=== PATIENT | male | born 1995 | race Caucasian/White ===

== ENCOUNTER 2016-05-10 00:17 | Emergency (ER) | payer MEDICAID, OTHER ==
[~2016-05-10] VITALS: Ht 177.8 cm; Wt 88.0 kg
[~2016-05-10 00:17] MED LIST: ACET-2047 PO; IBUP-1542 PO
[2016-05-10 00:31] VITALS: Ht 177.8 cm; Wt 88.0 kg
--- NOTE | 2016-05-10 03:47 | ERD ---
ER Documentation Chief Complaint Date/Time DATE: 05/10/16 TIME: 03:45 Chief Complaint right wrist laceration from a broken window yesterday HPI 21-year-old male presents in emergency department for complete right laceration wound from a hitting a broken window accidentally. Patient is complaining of pain on affected area throbbing pain, 4/10 scale, is worse upon movement. Patient denies any limitation of movement of the joint. Patient denies any numbness or tingling. Patient denies any fever or chills. Patient did not take any medications to help with symptoms. ROS All systems reviewed and are negative except as per history of present illness. Medications Home Meds Active Scripts Acetaminophen* (Acetaminophen*) 650 Mg Tablet, 650 MG PO Q4H Y for FEVER, #15 TAB Prov:CHO,REMBERTO 10/28/14 Ibuprofen* (Motrin*) 600 Mg Tab, 600 MG PO Q6 for FEVER, #15 TAB Prov:CHO,REMBERTO 15 Allergies Allergies: Coded Allergies: No Known Allergy (Unverified , 05/10/16) PMhx/Soc Last tetanus immunization one year ago. Medical and Surgical Hx: pt denies Medical Hx, pt denies Surgical Hx History of Surgery: No Anesthesia Reaction: No Hx Neurological Disorder: No Hx Respiratory Disorders: No Hx Cardiac Disorders: No Hx Psychiatric Problems: No Hx Miscellaneous Medical Probl: No Hx Alcohol Use: No Hx Substance Use: No Hx Tobacco Use: Yes Smoking Status: Current every day smoker FmHx Family History: No coronary disease, No diabetes, No other Physical Exam Vitals Vital Signs Date Time Temp Pulse Resp B/P Pulse Ox O2 Delivery O2 Flow Rate FiO2 05/10/16 00:31 97.6 85 20 137/68 100 Physical Exam GENERAL: The patient is well developed and appropriate for usual state of health, in no apparent distress. CHEST: Clear to auscultation bilaterally. There are no rales, wheezes or rhonchi. HEART: Regular rate and rhythm. No murmurs, clicks, rubs or gallops. No S3 or S4. ABDOMEN: Soft, nontender and nondistended. Good bowel sounds. No rebound or guarding. No gross peritonitis. No gross organomegaly or masses. No Jackson sign or McBurney point tenderness. BACK: No midline or flank tenderness. EXTREMITIES: Patient was able to do full range of motion of the right wrist without any restriction. Equal pulses bilaterally. There is no peripheral clubbing, cyanosis or edema. No focal swelling or erythema. Full range of motion. Grossly neurovascularly intact. NEURO: Alert and oriented. Cranial nerves 2-12 intact. Motor strength in all 4 extremities with 5/5 strength. Sensation grossly intact. Normal speech and gait. SKIN: 4 cm laceration wound noted in the right forearm near the right wrist area , extends up to the dermal layer, no subcutaneous tissue involvement. No tendon involvement. No palpable foreign body. There is no apparent rash or petechia. The skin is warm and dry. HEMATOLOGIC AND LYMPHATIC: There is no evidence of excessive bruising or lymphedema. No gross cervical, axillary, or inguinal lymphadenopathy. Results 24 hrs PROCEDURE: XR wrist. CLINICAL INDICATION: Foreign body. TECHNIQUE: AP, lateral and oblique views of the right wrist was obtained. COMPARISON: There are no similar studies submitted for comparison. FINDINGS: There is no acute fracture or dislocation. No destructive osseous lesions are seen. The joint spaces are unremarkable. No radiopaque foreign bodies are seen. IMPRESSION: No acute fracture or dislocation. RPTAT: HIKT .Fred Miranda MD, MD Date Time Electronically viewed and signed by .Fred Miranda MD, MD on 05/10/2016 04:45 .T/ CC: RENE WHITE MANAGER [employer] Procedures/MDM Procedure Note: After obtaining informed consent, the wound was irrigated with 250 ml of normal saline and cleaned with diluted betadine. Using aseptic technique, the wound was approximated using a 3 [place]. After the procedure, the wound was well approximated. Patient tolerated procedure well. Bacitracin applied on affected area. Dressing was applied afterwards. Medical Decision Making: Patient's pain is most likely consistent with a laceration wound noted on the area which was easily approximated using rose. There is no suspicion for neurovascular compromise. Patient has intact sensation and circulation of the affected extremity. There is low suspicion for septic arthritis. Patient does not have any fever. Radiology exams of the affected area does not show any fracture or dislocation. No foreign body noted. Disposition: Home. Patient is given prescription for ibuprofen for pain, Tramadol for severe pain, Keflex to prevent infection. Patient was advised to elevate the affected area and apply ice on affected area. Patient was advised that if symptoms are worse, numbness, tingling, high fever, unable to move joint , worsening symptoms, to return to emergency department immediately. Otherwise, patient is advised to follow up with the primary care doctor in 2 days, staple removal in 10 days. Departure Diagnosis: Primary Impression: Arm laceration Encounter type: initial encounter Laterality: right Qualified Code: S41.111A - Arm laceration, right, initial encounter Condition: Stable Patient Instructions: Laceration, Extrem (Suture, Staple, Or Tape) Additional Instructions: Patient is given prescription for ibuprofen for pain, Tramadol for severe pain , Keflex to prevent infection. Patient was advised to elevate the affected area and apply ice on affected area. Patient was advised that if symptoms are worse , numbness, tingling, high fever, unable to move joint, worsening symptoms, to return to emergency department immediately. Otherwise, patient is advised to follow up with the primary care doctor in 2 days, staple removal in 10 days. RENE WHITE NP May 10, 2016 03:47
--- NOTE | 2016-05-10 04:45 | RADRPT ---
PROCEDURE: XR wrist. CLINICAL INDICATION: Foreign body. TECHNIQUE: AP, lateral and oblique views of the right wrist was obtained. COMPARISON: There are no similar studies submitted for comparison. FINDINGS: There is no acute fracture or dislocation. No destructive osseous lesions are seen. The joint spaces are unremarkable. No radiopaque foreign bodies are seen. IMPRESSION: No acute fracture or dislocation. RPTAT: HIKT .Fred Miranda MD, MD Date Time Electronically viewed and signed by .Fred Miranda MD, on 05/10/2016 04:45 .T/
[2016-05-10] MEDS ORDERED: CEPH-443 PO (04:58)
[2016-05-10] MEDS ORDERED: IBUP-1542 PO (04:58)
[2016-05-10] MEDS ORDERED: TRAM50TA2 PO (04:58)
[2016-05-10 05:07] VITALS: BP 120/63; PULSE 86; RESP 20; TEMP 98.6
== END 2016-05-10 05:08 | disposition home or self-care (01) ==
LOC: FTE 00:17
DX: S51.811A Laceration without foreign body of right forearm, initial encounter (principal); W25.XXXA Contact with sharp glass, initial encounter; Y92.9 Unspecified place or not applicable; Z87.891 Personal history of nicotine dependence

== ENCOUNTER 2018-10-05 01:50 | Emergency (ER) | payer SELFPAY ==
[~2018-10-05] VITALS: Ht 180.3 cm; Wt 111.7 kg
[~2018-10-05 01:50] MED LIST changes: +CEPH-443 PO; +TRAM50TA2 PO
[2018-10-05 01:53] VITALS: Ht 180.3 cm; Wt 111.7 kg
[2018-10-05] MEDS ORDERED: MECLIZINE 12.5 MG TAB PO ONE (04:30)
[2018-10-05 06:36] VITALS: BP 125/71; PULSE 59; RESP 18
--- NOTE | 2018-10-13 18:44 | ERD ---
ER Documentation Chief Complaint Chief Complaint DIZZINESS HPI History of Present Illness: 23-year-old male coming in today with complaint of dizziness in which he feels room is spinning, feeling like he is wanting to faint, difficulty breathing. Patient reports symptoms have been the day before his visit to emergency department today. Patient reports increased episodes of this occurring over the past month. Denies syncopal episodes. At home pharmacological/nonpharmacological treatment for symptoms: Denies Denies social concerns; Denies recent foreign travel ROS All systems reviewed and are negative except as per history of present illness. Medications Home Meds Active Scripts Ibuprofen* (Motrin*) 600 Mg Tab, 600 MG PO Q6H PRN for PAIN AND OR ELEVATED TEMP, #30 TAB Prov:RENE WHITE TOOTH INSPECTOR 05/10/16 Tramadol HCl (Tramadol HCl) 50 Mg Tablet, 50 MG PO Q6 PRN for SEVERE PAIN LEVEL 7-10, #20 TAB Prov:RENE WHITE NP 05/10/16 Cephalexin* (Keflex*) 500 Mg Capsule, 500 MG PO QID for 5 Days, CAP Prov:RENE WHITE TOOTH INSPECTOR 05/10/16 Acetaminophen* (Acetaminophen*) 650 Mg Tablet, 650 MG PO Q4H PRN for FEVER, #15 TAB Prov:CHO,REMBERTO 10/28/14 Ibuprofen* (Motrin*) 600 Mg Tab, 600 MG PO Q6 for FEVER, #15 TAB Prov:CHO,REMBERTO 15 Allergies Allergies: Coded Allergies: No Known Allergy (Unverified , 05/10/16) PMhx/Soc Medical and Surgical Hx: pt denies Medical Hx, pt denies Surgical Hx History of Surgery: No Anesthesia Reaction: No Hx Neurological Disorder: No Hx Respiratory Disorders: No Hx Cardiac Disorders: No Hx Psychiatric Problems: No Hx Miscellaneous Medical Probl: No Hx Alcohol Use: Yes (ocassional) Hx Substance Use: No Hx Tobacco Use: Yes Smoking Status: Current every day smoker FmHx Family History: No diabetes, No coronary disease Physical Exam Physical Exam Const: No acute distress, afebrile Head: Atraumatic Eyes: Normal Conjunctiva ENT: Normal External Ears, Nose and Mouth. Neck: Full range of motion. No meningismus. Resp: Clear to auscultation bilaterally Cardio: Bradycardia, heart rate of 56, no murmurs Abd: Soft, non tender, non distended. No guarding, no masses, no rigidity Skin: No petechiae or rashes Back: No midline or flank tenderness Ext: No cyanosis, or edema Neur: Awake and alert x3, speaking in clear sentences, no focal deficits or facial asymmetry Psych: Normal Mood and Affect Results 24 hrs Laboratory Tests Test 10/05/18 04:50 10/05/18 04:59 10/05/18 05:21 Urine Opiates Screen Negative Urine Barbiturates Negative Urine Amphetamines Screen Negative Urine Benzodiazepines Screen Negative Urine Cocaine Screen Negative Urine Cannabinoids Negative White Blood Count 8.0 10^3/ul Red Blood Count 5.40 10^6/ul Hemoglobin 15.7 g/dl Hematocrit 45.8 % Mean Corpuscular Volume 84.8 fl Mean Corpuscular Hemoglobin 29.1 pg Mean Corpuscular Hemoglobin Concent 34.3 g/dl Red Cell Distribution Width 12.6 % Platelet Count 219 10^3/UL Mean Platelet Volume 10.4 fl Immature Granulocytes % 0.400 % Neutrophils % 51.7 % Lymphocytes % 38.1 % Monocytes % 6.0 % Eosinophils % 2.9 % Basophils % 0.9 % Nucleated Red Blood Cells % 0.0 /100WBC Immature Granulocytes # 0.030 10^3/ul Neutrophils # 4.1 10^3/ul Lymphocytes # 3.0 10^3/ul Monocytes # 0.5 10^3/ul Eosinophils # 0.2 10^3/ul Basophils # 0.1 10^3/ul Nucleated Red Blood Cells # 0.0 10^3/ul Sodium Level 142 mmol/L Potassium Level 4.1 mmol/L Chloride Level 108 mmol/L Carbon Dioxide Level 25 mmol/L Anion Gap 9 Blood Urea Nitrogen 16 mg/dl Creatinine 0.80 mg/dl Est Glomerular Filtrat Rate mL/min > 60 mL/min Glucose Level 93 mg/dl Calcium Level 9.3 mg/dl Total Bilirubin 0.6 mg/dl Direct Bilirubin 0.00 mg/dl Indirect Bilirubin 0.6 mg/dl Aspartate Amino Transf (AST/SGOT) 29 IU/L Alanine Aminotransferase (ALT/SGPT) 35 IU/L Alkaline Phosphatase 95 IU/L Troponin I < 0.012 ng/ml Total Protein 7.8 g/dl Albumin 4.4 g/dl Globulin 3.40 g/dl Albumin/Globulin Ratio 1.29 Bedside Urine pH (LAB) 6.0 Bedside Urine Protein (LAB) Trace Bedside Urine Glucose (UA) Negative Bedside Urine Ketones (LAB) Negative Bedside Urine Blood Trace-intact Bedside Urine Nitrite (LAB) Negative Bedside Urine Leukocyte Esterase (L Negative Current Medications Medications Dose Sig/Mildred Start Time Status Last (Trade) Ordered Route PRN Stop Time Admin Dose Reason Admin Meclizine 25 mg ONCE ONCE 10/05/18 DC 10/05/18 HCl PO 04:30 10/05/18 04:51 (Antivert) 04:31 Procedures/MDM ED COURSE: ED course includes a thorough examination and history. The patient was stable throughout ED course. I kept the patient and/or family informed of laboratory and diagnostic imaging results throughout the ED course. LABS: CBC: no e/o of systemic infection or severe anemia CMP: no e/o severe acidosis, alkalosis, renal failure, diabetic ketoacidosis, liver disease troponin negative UDS negative Urinalysis with trace protein and blood MEDICATIONS GIVEN IN ER: Meclizine Patient tolerated medication well with no adverse reactions. Patient reported improvement in dizziness symptoms. DIAGNOSTIC IMAGING: Read by radiologist. Chest x-ray shown IMPRESSION: 1. No acute abnormalities. RPTAT:HGST Physician Madelaine Date Time Electronically viewed and signed by Yulia Jensen Physician on 10/05/2018 05 :40 EKG: Read by ED attending physician. EKG shows sinus bradycardia rhythm at a rate of 49. No arrhythmias, acute ST elevations or T wave changes were noted. MEDICAL DECISION MAKING: Low suspicion for life-threatening medical emergency. Low suspicion for cardiac emergency including STEMI, NSTEMI. Otherwise healthy patient presenting with constellation of symptoms likely re presenting symptomatic bradycardia as characterized by history, physical exam findings, radiologic findings, lab findings. Patient reassessment @ 0630: Results discussed. Patient hemodynamically stable. No respiratory distress, otherwise relatively well appearing and nontoxic. Disposition given. Patient educated on diagnoses, prescriptions, follow-up care, return precautions. Strict return precautions given for worsening condition; questions answered discharge. Patient verbalizes understanding of discharge instructions. DISPOSITION: DISCHARGE At this time, patient is stable for discharge and outpatient management. I have instructed the patient to follow-up with his/her primary care physician in 1-2 days. I have discussed with the patient the possibility of needing to see a specialist for further workup and imaging studies if symptoms persist. I have instructed the patient to promptly return to the ER for any new or worsening symptoms including increased pain, fever, nausea, vomiting, weakness or LOC. The patient and/or family expressed understanding of and agreement with this plan. All questions were answered. Home care instructions were provided. DISCLAIMER: Inadvertent spelling and grammatical errors are likely due to EHR/dictation software use and do not reflect on the overall quality of patient care. Also, please note that the electronic time recorded on this note does not necessarily reflect the actual time of the patient encounter. Departure Diagnosis: Primary Impression: Lightheadedness Additional Impression: Symptomatic bradycardia Condition: Stable Patient Instructions: Bradycardia Referrals: [facility] YOU HAVE RECEIVED A MEDICAL SCREENING EXAM AND THE RESULTS INDICATE THAT YOU DO NOT HAVE A CONDITION THAT REQUIRES URGENT TREATMENT IN THE EMERGENCY DEPARTMENT. FURTHER EVALUATION AND TREATMENT OF YOUR CONDITION CAN WAIT UNTIL YOU ARE SEEN IN YOUR DOCTORS OFFICE WITHIN THE NEXT 1-2 DAYS. IT IS YOUR RESPONSIBILITY TO MAKE AN APPOINTMENT FOR FOLOW-UP CARE. IF YOU HAVE A PRIMARY DOCTOR --you should call your primary doctor and schedule an appointment IF YOU DO NOT HAVE A PRIMARY DOCTOR YOU CAN CALL OUR PHYSICIAN REFERRAL HOTLINE AT IF YOU CAN NOT AFFORD TO SEE A PHYSICIAN YOU CAN CHOSE FROM THE FOLLOWING [facility] [address] [facility] [address] [facility] [address] [facility] [address] [facility] [address] [facility]. [facility]. [address] [facility]. [facility] YOU HAVE RECEIVED A MEDICAL SCREENING EXAM AND THE RESULTS INDICATE THAT YOU DO NOT HAVE A CONDITION THAT REQUIRES URGENT TREATMENT IN THE EMERGENCY DEPARTMENT. FURTHER EVALUATION AND TREATMENT OF YOUR CONDITION CAN WAIT UNTIL YOU ARE SEEN IN YOUR DOCTORS OFFICE WITHIN THE NEXT 1-2 DAYS. IT IS YOUR RESPONSIBILITY TO MAKE AN APPOINTMENT FOR FOLOW-UP CARE. IF YOU HAVE A PRIMARY DOCTOR --you should call your primary doctor and schedule and appointment IF YOU DO NOT HAVE A PRIMARY DOCTOR YOU CAN CALL OUR PHYSICIAN REFERRAL HOTLINE AT . IF YOU CAN NOT AFFORD TO SEE A PHYSICIAN YOU CAN CHOSE FROM THE FOLLOWING [facility] INSTITUTIONS: [facility] [address] [place] [address] [facility] [address] [place] [address] [facility] [address] [place] [address] Additional Instructions: Thank you very much for allowing us to participate in your care. Your health and safety is our top priority at [facility]. It is important to read all discharge instructions and education provided in your discharge packet. *See your primary care doctor next week so that you can get further evaluation. Talk to your primary care doctor about a referral to cardiology/heart doctor for further testing. Call your primary care doctor TOMORROW for an appointment during the next 2-4 days and bring all the information and medications prescribed. Have prescriptions filled and follow precisely the directions on the label. If the symptoms get worse and your provider is unavailable, return to the Emergency Department immediately. ANTHONY PLATA NP Oct 13, 2018 18:44
== END 2018-10-05 06:37 | disposition home or self-care (01) ==
LOC: FTE 01:50
DX: R42 Dizziness and giddiness (principal); F17.210 Nicotine dependence, cigarettes, uncomplicated; R00.1 Bradycardia, unspecified
CPT/HCPCS: 36415; 71046; 80053; 80307; 81003; 84484; 85025; 93005

== ENCOUNTER 2018-10-06 03:45 | Emergency (ER) | payer SELFPAY ==
[~2018-10-06] VITALS: Ht 180.3 cm; Wt 110.0 kg
[2018-10-06 03:47] VITALS: Ht 180.3 cm; Wt 110.0 kg
[2018-10-06 04:20] VITALS: BP 121/73; PULSE 68; RESP 18
--- NOTE | 2018-10-06 04:22 | ERD ---
ER Documentation Chief Complaint Chief Complaint Shortness of breath x1 hour while sleeping. HPI 23-year-old male presenting with shortness of breath. Patient states that he woke up and felt short of breath. He denies any cough. Mildly dizzy. Denies headache. Denies use of medications. States he was seen yesterday and had blood work and imaging which was all normal. Denies any chest pain. Denies medical problems. NKDA. Surgical history denies. Social history smokes 8 to 9 cigarettes a day. Denies drug use ROS All systems reviewed and are negative except as per history of present illness. Medications Home Meds Active Scripts Ibuprofen* (Motrin*) 600 Mg Tab, 600 MG PO Q6H PRN for PAIN AND OR ELEVATED TEMP, #30 TAB Prov:RENE WHITE FINISHER [employer]URE 05/10/16 Tramadol HCl (Tramadol HCl) 50 Mg Tablet, 50 MG PO Q6 PRN for SEVERE PAIN LEVEL 7-10, #20 TAB Prov:RENE WHITE FINISHER [employer] 05/10/16 Cephalexin* (Keflex*) 500 Mg Capsule, 500 MG PO QID for 5 Days, CAP Prov:RENE WHITE FINISHER [employer] 05/10/16 Acetaminophen* (Acetaminophen*) 650 Mg Tablet, 650 MG PO Q4H PRN for FEVER, #15 TAB Prov:CHO,REMBERTO 10/28/14 Ibuprofen* (Motrin*) 600 Mg Tab, 600 MG PO Q6 for FEVER, #15 TAB Prov:CHO,REMBERTO 15 Allergies Allergies: Coded Allergies: No Known Allergy (Unverified , 05/10/16) PMhx/Soc Medical and Surgical Hx: pt denies Medical Hx, pt denies Surgical Hx History of Surgery: No Anesthesia Reaction: No Hx Neurological Disorder: No Hx Respiratory Disorders: No Hx Cardiac Disorders: No Hx Psychiatric Problems: No Hx Miscellaneous Medical Probl: No Hx Alcohol Use: Yes (Social) Hx Substance Use: No Hx Tobacco Use: Yes (Cigarettes) Smoking Status: Current every day smoker FmHx Family History: No diabetes, No coronary disease, No other Physical Exam Vitals Vital Signs Date Temp Pulse Resp B/P (MAP) Pulse Ox O2 O2 Flow FiO2 Time Delivery Rate 10/06/18 98.6 70 20 162/69 100 03:47 (100) Physical Exam GENERAL: The patient is well-appearing, well-nourished, in no acute distress HEENT: Atraumatic. Conjunctivae are pink. Pupils equal, round, and reactive to light. There is no scleral icterus. Tympanic membranes clear bilaterally. Oropharynx clear. NECK: C-spine is soft and supple. There is no meningismus. There is no cervical lymphadenopathy. CHEST: Clear to auscultation bilaterally. There are no rales, wheezes or rhonchi. HEART: Regular rate and rhythm. No murmurs, clicks, rubs or gallops. Procedures/MDM EKG: Rate/Rhythm: 59 bpm. Sinus Regino QRS, ST, T-waves: No changes consistent w/ acute ischemia Impression: No evidence of ischemia or arrhythmia MDM: 23-year-old male presenting with shortness of breath. Patient has bradycardia noted on EKG however low suspicion for cardiac or pulmonary emergency. Patient is not having cardiac pain at this time. Patient had blood work and x-ray done yesterday which was normal. Patient is discharged with strict ER precautions and told to follow-up with primary care within 1 to 2 days for close evaluation. All questions answered at discharge Departure Diagnosis: Primary Impression: Bradycardia Additional Impression: Shortness of breath Condition: Stable Patient Instructions: Bradycardia Referrals: [facility] YOU HAVE RECEIVED A MEDICAL SCREENING EXAM AND THE RESULTS INDICATE THAT YOU DO NOT HAVE A CONDITION THAT REQUIRES URGENT TREATMENT IN THE EMERGENCY DEPARTMENT. FURTHER EVALUATION AND TREATMENT OF YOUR CONDITION CAN WAIT UNTIL YOU ARE SEEN IN YOUR DOCTORS OFFICE WITHIN THE NEXT 1-2 DAYS. IT IS YOUR RESPONSIBILITY TO MAKE AN APPOINTMENT FOR FOLOW-UP CARE. IF YOU HAVE A PRIMARY DOCTOR --you should call your primary doctor and schedule an appointment IF YOU DO NOT HAVE A PRIMARY DOCTOR YOU CAN CALL OUR PHYSICIAN REFERRAL HOTLINE AT IF YOU CAN NOT AFFORD TO SEE A PHYSICIAN YOU CAN CHOSE FROM THE FOLLOWING [facility] [address] [facility] [address] [facility] [address] [facility] [address] [facility] [address] [facility]. [facility] [address] Additional Instructions: FOLLOW UP WITH YOUR PRIMARY CARE PHYSICIAN TOMORROW.Return to this facility if you are not improving as expected. MADDIE LAM PA-C Oct 06, 2018 04:22
== END 2018-10-06 04:21 | disposition home or self-care (01) ==
LOC: FTE 03:45
DX: R00.1 Bradycardia, unspecified (principal); F17.210 Nicotine dependence, cigarettes, uncomplicated
CPT/HCPCS: 93005